=== PATIENT | male | born 1965 | race Caucasian/White ===

== ENCOUNTER 2017-05-15 21:06 | Emergency (ER) | payer OTHER ==
[~2017-05-15] VITALS: Ht 182.9 cm; Wt 72.6 kg
[2017-05-15 22:59] VITALS: BP 104/50
== END 2017-05-15 23:02 | disposition home or self-care (01) ==
LOC: M.ERS 21:06
DX: S80.11XA Contusion of right lower leg, initial encounter (principal); V86.99XA Unspecified occupant of other special all-terrain or other off-road motor vehicle injured in nontraffic accident, initial encounter; Y93.89 Activity, other specified; Y92.89 Other specified places as the place of occurrence of the external cause; Y99.8 Other external cause status